=== PATIENT | female | born 1965 ===

== ENCOUNTER 2018-10-05 11:53 | Emergency (ER) | payer OTHER ==
[2018-10-05 12:08] VITALS: O2SAT 99
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
[2018-10-05 13:20] VITALS: BP 103/71; PULSE 65; RESP 20; TEMP 98
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
--- NOTE | 2018-10-05 14:30 | RAD ---
Date of service: 10/05/2018 PROCEDURE: Cervical Spine Radiographs. HISTORY: Pain. COMPARISON: None available. FINDINGS: BONES: There is normal alignment of the cervical vertebral bodies. There is loss of normal cervical lordosis. Vertebral height is normal. Bone mineralization is normal. There is no acute fracture or traumatic anterior listhesis. The craniocervical junction is normal. The atlantoaxial joint normal. DISC SPACES: There is mild degenerative disc disease at C5-6 with reduced disc height, anterior spurring and facet arthropathy. The remaining disc heights are maintained. SOFT TISSUES: Normal. No prevertebral soft tissue swelling. OTHER FINDINGS: None. IMPRESSION: No acute fracture or spondylolisthesis. Mild degenerative disc disease at C5-6. Straightening of the cervical spine may be positional or related to muscle spasm.
== END 2018-10-05 13:20 | disposition home or self-care (01) ==
LOC: C.ER 11:53
DX: S13.4XXA Sprain of ligaments of cervical spine, initial encounter (principal); S60.042A Contusion of left ring finger without damage to nail, initial encounter; V49.59XA Passenger injured in collision with other motor vehicles in traffic accident, initial encounter; Y92.410 Unspecified street and highway as the place of occurrence of the external cause